=== PATIENT | male | born 1980 | race Hispanic/Latino ===

== ENCOUNTER 2023-02-15 10:59 | Emergency (ER) | payer SELFPAY ==
[2023-02-15] MEDS ORDERED: Boostrix 0.5 ML (Tdap) VIAL (>/=7 yrs of age) ONE (11:23)
[2023-02-15] MEDS ORDERED: Lidocaine 1% w/Epinephrine 1:100K 20 ML VIAL ONE (11:23)
[2023-02-15] MEDS ORDERED: Bacitracin 1 PK ONE (12:44)
== END 2023-02-15 12:43 | disposition home or self-care (01) ==
LOC: ERS 10:59
DX: S61.217A Laceration without foreign body of left little finger without damage to nail, initial encounter (principal); Z23 Encounter for immunization; W25.XXXA Contact with sharp glass, initial encounter
CPT/HCPCS: 12002; 90471; 90715